=== PATIENT | female | born 1980 | race American Indian/Alaskan Native ===

== ENCOUNTER 2016-08-04 02:09 | Emergency (ER) | payer SELFPAY ==
[2016-08-04 02:37] VITALS: BP 134/93
[2016-08-04] MEDS ORDERED: ZOFRAN ODT ONE (02:47)
[2016-08-04] MEDS ORDERED: ZOFRAN ODT PO ONE (02:50)
[2016-08-04 03:03] LABS: Basophils % (Auto) 0.6 % (0.0-1.8); Eosinophils % (Auto) 1.1 % (0.0-4.3); Hemoglobin 13.9 gm/dl (10.1-14.3); Mean Corpuscular HGB Conc 34 % (30-34); Mean Corpuscular Hemoglobin 32 pg (28-32); Mean Corpuscular Volume 94 fl (79-97); Platelet Count 233 K/mm3 (140-440); Red Blood Count 4.37 M/mm3 (3.65-5.03); Red Cell Distribution Width 13.5 % (13.2-15.2); White Blood Count 11.8 K/mm3 (4.5-11.0)
--- NOTE | 2016-08-04 05:21 | Ultrasound Report ---
FINAL REPORT EXAM: US OB TRANSVAGINAL HISTORY: severe LLQ pain during . LMP 05/30/2016 with estimated age 9 weeks 3 days and EDC 03/06/2017 TECHNIQUE: Ultrasound of the pelvis using transvaginal imaging PRIORS: None. FINDINGS: Uterus: Uterus is enlarged in size and normal and homogeneous in echogenicity without focal fibroid formation. The uterus measures 13.0 x 6.3 x 8.4 cm in size. There is a single early viable intrauterine gestation noted. Intrauterine gestation: There is a single intrauterine gestation identified with both a pole and yolk sac. heart rate is monitored at 169 BPM. [place]-rump length measurement of 3.44 cm corresponds to estimated age 10 weeks 2 days with EDC 02/28/2017. Ovaries: The right ovary is not visualized. The left ovary is enlarged but has normal echogenicity with normal blood flow. The left ovary measures 5.3 x 2.8 x 2.1 cm in size. Other: There is no evidence for solid adnexal mass is seen. There is no free fluid in the cul-de-sac. IMPRESSION: Single intrauterine viable with an approximate age of 10 weeks 2 days. Left ovarian enlargement is noted. The right ovary is not visualized.
--- NOTE | 2016-08-04 05:22 | Ultrasound Report ---
FINAL REPORT EXAM: US OB < = 14 WEEKS FETUS HISTORY: severe LLQ pain during . LMP 05/30/2016 with estimated age 9 weeks 3 days and EDC 03/06/2017 TECHNIQUE: Ultrasound of the pelvis using transabdominal imaging PRIORS: Ultrasound transvaginal imaging from the same day. FINDINGS: Uterus: Uterus is enlarged in size and normal and homogeneous in echogenicity without focal fibroid formation. The uterus measures 13.0 x 6.3 x 8.4 cm in size. There is a single early viable intrauterine gestation noted. Intrauterine gestation: There is a single intrauterine gestation identified with both a pole and yolk sac. heart rate is monitored at 171 BPM. [place]-rump length measurement of 3.44 cm corresponds to estimated age 10 weeks 2 days with EDC 02/28/2017. Ovaries: The right ovary is not visualized. The left ovary is enlarged but has normal echogenicity with normal blood flow. The left ovary measures 5.3 x 2.8 x 2.1 cm in size. Other: There is no evidence for solid adnexal mass is seen. There is no free fluid in the cul-de-sac. IMPRESSION: Single intrauterine viable with an approximate age of 10 weeks 2 days. Left ovarian enlargement is noted. The right ovary is not visualized.
--- NOTE | 2016-08-05 18:40 | ED Elopement Review ---
ED Pt Elopement review - Results review Lab results: Laboratory Tests 08/04/16 08/04/16 08/04/16 02:47 02:47 02:47 WBC 11.8 H RBC 4.37 Hgb 13.9 Hct 41.0 MCV 94 MCH 32 MCHC 34 RDW 13.5 Plt Count 233 Lymph % (Auto) 23.4 [place] % (Auto) 6.9 Eos % (Auto) 1.1 Baso % (Auto) 0.6 Lymph # 2.8 [place] # 0.8 Eos # 0.1 Baso # 0.1 Seg Neutrophils % 68.0 Seg Neutrophils # 8.0 H HCG, Quant 26653 H Blood Type A POSITIVE Antibody Screen Negative - Call Back decision Pt Call Back Decision: No action required
== END 2016-08-04 02:50 | disposition left against medical advice (07) ==
LOC: ED 02:09
DX: O26.851 Spotting complicating pregnancy, first trimester (principal); Z3A.09 9 weeks gestation of pregnancy; Z53.21 Procedure and treatment not carried out due to patient leaving prior to being seen by health care provider
CPT/HCPCS: 36415; 76801; 76817; 84702; 85025; 86850; 86900; 86901; Q0162

== ENCOUNTER 2016-10-17 18:46 | Outpatient (CLI) | payer MEDICAID ==
[2016-10-17 19:30] VITALS: BP 121/68
[2016-10-17] MEDS ORDERED: LACTATED RINGERS 1,000 ML IV ONE (19:33)
[2016-10-17 20:03] LABS: Bacteria,Urine 2+ /HPF (Negative); Bilirubin,Urine NEG (Negative); Blood,Urine MOD (Negative); Ketones,Urine NEG (Negative); Leukocyte Esterase,Urine NEG (Negative); Mucus,Urine FEW /HPF; Nitrite,Urine NEG (Negative); Protein,Urine <15 mg/dL mg/dL (Negative)
[2016-10-17] MEDS ORDERED: ZOFRAN IM ONE (20:37)
[2016-10-17] MEDS ORDERED: LACTATED RINGERS 1,000 ML ONE (20:37)
[2016-10-17] MEDS ORDERED: ZOFRAN IV ONE (21:19)
== END 2016-10-17 21:05 | disposition home or self-care (01) ==
LOC: TRG 18:46
PROVIDERS: ATTEND Obstetrics & Gynecology
DX: O09.523 Supervision of elderly multigravida, third trimester (principal); O47.02 False labor before 37 completed weeks of gestation, second trimester; Z3A.20 20 weeks gestation of pregnancy
CPT/HCPCS: 81001; 96360; 96361; 96376; J7120; J2405

== ENCOUNTER 2017-02-16 00:36 | Inpatient (IN) | payer MEDICAID ==
[2017-02-16] MEDS ORDERED: POLYCILLIN/NS 2 GM/100 ML 2 GM/100 ML BAG IV ONE ×2 (03:57→04:40)
[2017-02-16] MEDS ORDERED: LACTATED RINGERS 1,000 ML ONE (03:57)
[2017-02-16] MEDS ORDERED: ZOFRAN IV PRN (04:40)
[2017-02-16] MEDS ORDERED: XYLOCAINE 2% INFILTRATI ONE (04:40)
[2017-02-16] MEDS ORDERED: BRETHINE SUB-Q PRN (04:40)
[2017-02-16] MEDS ORDERED: SUBLIMAZE IV PRN (04:40)
[2017-02-16] MEDS ORDERED: BRETHINE IVP PRN (04:40)
[2017-02-16] MEDS ORDERED: PHENERGAN PO PRN (04:40)
[2017-02-16] MEDS ORDERED: STADOL IV PRN (04:40)
[2017-02-16] MEDS ORDERED: ePHEDrine SULFATE IV PRN ×2 (04:40→10:00)
[2017-02-16] MEDS ORDERED: MINERAL OIL PO PRN (04:40)
--- NOTE | 2017-02-16 04:46 | History and Physical Report ---
History of Present Illness Date of examination: 02/16/17 Date of admission: 02/16/17 03:20 Chief complaint: Labor History of present illness: Pt is a 36yo BF EDC 03/06/17; EGA 37 3/7 weeks presents to L&D complaining of SROM clear fluid followed by irregular contractions. She received care with Dr Maher and [facility] but records are not available. Past History Past Medical History: no pertinent history Past Surgical History: no surgical history Social history: no significant social history, single - Obstetrical History Expected Date of Delivery: 03/06/17 Actual Gestation: 37 Week(s) 3 Day(s) : 4 Medications and Allergies Allergies Allergy/AdvReac Type Severity Reaction Status Date / Time No Known Allergies Allergy Verified 09/16/15 04:58 Home Medications Medication Instructions Recorded Confirmed Last Taken Type Nitrofurantoin [place]/M-Cryst 100 mg PO Q12HR 11/17/15 02/16/17 11/15/15 21:00 History [Macrobid CAP] 1 Valacyclovir HCl [valACYclovir] 1 tab PO DAILY 11/17/15 02/16/17 11/15/15 21:00 History 1 Active Meds: Active Medications Butorphanol Tartrate (Stadol) 2 mg IV Q2H PRN PRN Reason: Pain , Severe (7-10) Ephedrine Sulfate (Ephedrine Sulfate) 10 mg IV Q2M PRN PRN Reason: Hypotension Stop: 02/16/17 04:45 Fentanyl (Sublimaze) 100 mcg IV Q2H PRN PRN Reason: Labor Pain Ampicillin Sodium (Polycillin/Ns 1 Gm/50 Ml) 1 gm in 50 mls @ 100 mls/hr IV Q4HR MARCELINA PRN Reason: Protocol Ampicillin Sodium (Polycillin/Ns 2 Gm/100 Ml) 2 gm in 100 mls @ 100 mls/hr IV ONCE ONE PRN Reason: Protocol Stop: 02/16/17 05:39 Lactated Ringer's (Lactated Ringers) 1,000 mls @ 125 mls/hr IV DIRECT MARCELINA Oxytocin/Sodium Chloride (Pitocin/Ns 20 Unit/1000ml Drip) 20 units in 1,000 mls @ 125 mls/hr IV DIRECT MARCELINA Oxytocin/Sodium Chloride (Pitocin/Ns 30 Unit/500ml) 30 units in 500 mls @ 1 mls /hr IV TITR MARCELINA; 1 MILLIUNITS/MIN PRN Reason: Protocol Oxytocin/Sodium Chloride (Pitocin/Ns 30 Unit/500ml) 30 units in 500 mls @ 4 mls /hr IV TITR MARCELINA PRN Reason: Protocol Lidocaine (Xylocaine 2%) 20 ml INFILTRATI ONCE ONE Stop: 02/16/17 04:41 Mineral Oil (Mineral Oil) 30 ml PO QHS PRN PRN Reason: Constipation Ondansetron HCl (Zofran) 4 mg IV Q8H PRN PRN Reason: Nausea And Vomiting Review of Systems All systems: negative - Vital Signs Vital signs: Vital Signs Pulse Pulse Ox 268 H 82 L 02/16/17 00:49 02/16/17 00:49 Temp Pulse Resp BP Pulse Ox 98.0 F 51 L 18 127/79 77 L 02/16/17 00:53 02/16/17 03:11 02/16/17 00:53 02/16/17 00:53 02/16/17 03:11 - Physical Exam Breasts: Positive: deferred Cardiovascular: Regular rate Lungs: Positive: Clear to auscultation Abdomen: Positive: normal appearance Genitourinary (Female): Positive: normal external genitalia Vagina: Positive: normal moisture Uterus: Positive: enlarged Extremities: Positive: normal - Obstetrical FHR: category 1 Uterine Contraction Monitor Mode: External Cervical Dilatation: 4 Cervical Effacement Percentage: 70 station: -2 Uterine Contraction Pattern: Regular Uterine Tone Measurement Phase: Contraction Uterine Contraction Intensity: Mild Results Result Diagrams: 02/16/17 03:30 All other labs normal. Assessment and Plan - Patient Problems (1) 37 weeks gestation of Onset Date: 02/16/17 Current Visit: Yes Status: Acute Plan to address problem: A: IUP @ 37 3/7 weeks in labor Unknown GBS P: Admit to L&D for expectant vaginal delivery IV Ampicillin Obtain records
[2017-02-16] MEDS ORDERED: PITOCin/NS 30 UNIT/500ML 30 UNITS/500 ML BAG IV SCH ×2 (05:00)
[2017-02-16] MEDS ORDERED: PITOCin/NS 20 UNIT/1000ML DRIP 20 UNITS/1,000 ML BAG IV SCH (05:00)
[2017-02-16 05:39] LABS: Hemoglobin 12.4 gm/dl (10.1-14.3); Mean Corpuscular HGB Conc 34 % (30-34); Mean Corpuscular Hemoglobin 30 pg (28-32); Mean Corpuscular Volume 91 fl (79-97); Platelet Count 198 K/mm3 (140-440); Red Blood Count 4.07 M/mm3 (3.65-5.03); Red Cell Distribution Width 14.5 % (13.2-15.2); White Blood Count 7.2 K/mm3 (4.5-11.0)
[2017-02-16] MEDS ORDERED: ePHEDrine SULFATE ONE (08:20)
[2017-02-16] MEDS ORDERED: POLYCILLIN/NS 1 GM/50 ML 1 GM/50 ML BAG IV SCH (08:43)
[2017-02-16] MEDS ORDERED: fentaNYL-BUPIV 2 MCG/ML-0.125% 200 MCG/100 ML BAG EPIDURAL ONE (08:53)
--- NOTE | 2017-02-16 09:24 | Anesthesia Consultation ---
Anesthesia Consult and Med Hx Date of service: 02/16/17 - Airway Anesthetic Teeth Evaluation: Good ROM Head & Neck: Adequate Mental/Hyoid Distance: Adequate Mallampati Class: Class II Intubation Access Assessment: Probably Good - Pre-Operative Health Status ASA Pre-Surgery Classification: ASA2 Proposed Anesthetic Plan: Epidural, Spinal - Pulmonary Hx Asthma: No COPD: No Hx Pneumonia: No - Cardiovascular System Hx Hypertension: No - Central Nervous System Hx Seizures: No Hx Psychiatric Problems: No - Endocrine Hx Renal Disease: No Hx End Stage Renal Disease: No Hx Hypothyroidism: No Hx Hyperthyroidism: No - Hematic Hx Anemia: Yes Hx Sickle Cell Disease: No - Other Systems Hx Alcohol Use: No
--- NOTE | 2017-02-16 09:35 | Procedure Note ---
OB Delivery Note - Delivery Date of Delivery: 02/16/17 Surgeon: LAURA MONTOYA Estimated blood loss: 200cc - Vaginal Delivery presentation: vertex Delivery position: OA Delivery induction: none Delivery monitor: none Route of delivery: Delivery placenta: spontaneous Episiotomy: none Delivery laceration: none Anesthesia: intravenous, epidural Delivery comments: of a viable male 5#-15 oz on 02/16/2017 @ 0904 over intact perineum. Placenta delivered 3VCI. FF @ U-2, lochia small. Mother and baby doing well. States she had care at [facility]. - Infant A at 1 minute: 8 at 5 minutes: 9 Gender: Male (5#-15)
[2017-02-16] MEDS: LACTATED RINGERS 1,000 ML IV SCH ×2 (09:37→11:06)
[2017-02-16] MEDS: FIORICET PO PRN ×2 (09:57→14:15)
[2017-02-16] MEDS ORDERED: NARCAN 2 MG/2 ML IV PRN (10:00)
[2017-02-16] MEDS ORDERED: fentaNYL-BUPIV 2 MCG/ML-0.125% 200 MCG/100 ML BAG EPIDURAL SCH (10:00)
[2017-02-16] MEDS ORDERED: TORADOL IV PRN (10:00)
[2017-02-16] MEDS ORDERED: PERCOCET 5/325 PO PRN ×2 (12:36→12:37)
--- NOTE | 2017-02-16 15:24 | Progress Note ---
Subjective Date of service: 02/16/17 Principal diagnosis: POST DURAL PUNCTURE HEADACHE Interval history: EPIDURAL BLOOD PATCH NOTE: Called by nurse because patient complaining of neck pain and headache. Nurse reports that patient had a wet tap during combined spinal-epidural this morning for vaginal delivery. Pain is worse when sitting up and made slightly better when laying down. Patient describes pain as sharp and throbbing and she rates it 10/10. She reports that she can not sit up and hold her baby. Fioricet was ordered and patient was given two of them however she did not have any relief of pain. She was then consented for an epidural blood patch for post dural puncture headache. Patient was brought to [facility]. She was placed in sitting position. Back was steriley prepped and draped. Skin was numbed with 1% lidocaine local. 18 gauge tuoy needle was then placed at L2/3 level. Loss of resistance with saline at 5cm. 20cc of blood was obtained by ABRAHAM Yoder from patient left hand steriley. 20cc of blood was then injected back into epidural space. Patient was then laid flat for 30 minutes. She reported that her head and neck pain were getting better. She was then sent back to mother-baby in a stable condition. Lot #[id number] Exp 09/2017 Time Spent: 20 minutes Location: [facility] Procedure room 1 Requesting Physician: Dr. Tyree Ramesh Performing Physican: Dr. Anabela Bernal Objective - Constitutional Vitals: Vital Signs - 12hr 02/16/17 02/16/17 02/16/17 05:44 06:51 06:56 Temperature 98.3 F Pulse Rate 88 95 H 102 H Respiratory 20 Rate Blood Pressure 139/88 O2 Sat by Pulse 100 100 Oximetry 02/16/17 02/16/17 02/16/17 07:00 07:06 07:11 Temperature Pulse Rate 92 H 96 H 96 H Respiratory Rate Blood Pressure O2 Sat by Pulse 98 99 99 Oximetry 02/16/17 02/16/17 02/16/17 07:16 07:21 07:22 Temperature Pulse Rate 100 H 94 H 96 H Respiratory Rate Blood Pressure 172/96 O2 Sat by Pulse 99 97 Oximetry 02/16/17 02/16/17 02/16/17 07:24 07:26 07:31 Temperature Pulse Rate 96 H 95 H 104 H Respiratory Rate Blood Pressure 145/80 O2 Sat by Pulse 98 96 Oximetry 02/16/17 02/16/17 02/16/17 07:33 07:36 08:28 Temperature Pulse Rate 118 H 95 H 101 H Respiratory Rate Blood Pressure 123/67 O2 Sat by Pulse 85 98 99 Oximetry 02/16/17 02/16/17 02/16/17 08:30 08:33 08:37 Temperature 98.4 F Pulse Rate 102 H 101 H 99 H Respiratory 18 Rate Blood Pressure 123/67 123/69 O2 Sat by Pulse 99 99 Oximetry 02/16/17 02/16/17 02/16/17 08:38 08:39 08:41 Temperature Pulse Rate 94 H 98 H 86 Respiratory Rate Blood Pressure 122/71 123/72 O2 Sat by Pulse 99 Oximetry 02/16/17 02/16/17 02/16/17 08:43 08:45 08:47 Temperature Pulse Rate 93 H 84 88 Respiratory Rate Blood Pressure 123/73 125/75 125/71 O2 Sat by Pulse 98 Oximetry 02/16/17 02/16/17 02/16/17 08:48 08:49 08:51 Temperature Pulse Rate 86 85 129 H Respiratory Rate Blood Pressure 118/69 161/77 O2 Sat by Pulse 98 Oximetry 02/16/17 02/16/17 02/16/17 08:53 08:55 08:57 Temperature Pulse Rate 91 H 91 H 102 H Respiratory Rate Blood Pressure 135/63 125/91 120/74 O2 Sat by Pulse 98 Oximetry 02/16/17 02/16/17 02/16/17 08:58 08:59 09:01 Temperature Pulse Rate 97 H 94 H 99 H Respiratory Rate Blood Pressure 113/59 125/62 O2 Sat by Pulse 99 Oximetry 02/16/17 02/16/17 02/16/17 09:03 09:42 09:47 Temperature Pulse Rate 86 100 H 92 H Respiratory Rate Blood Pressure 151/95 O2 Sat by Pulse 97 100 Oximetry 02/16/17 02/16/17 02/16/17 09:52 09:57 10:02 Temperature Pulse Rate 86 85 84 Respiratory 20 Rate Blood Pressure 136/75 O2 Sat by Pulse 99 99 98 Oximetry 02/16/17 02/16/17 02/16/17 10:05 10:07 10:12 Temperature Pulse Rate 92 H 104 H 88 Respiratory 20 Rate Blood Pressure 151/95 130/74 O2 Sat by Pulse 100 100 Oximetry 02/16/17 02/16/17 02/16/17 10:17 10:22 10:24 Temperature 97.6 F Pulse Rate 95 H 91 H 95 H Respiratory 20 Rate Blood Pressure 130/74 O2 Sat by Pulse 100 100 Oximetry 02/16/17 02/16/17 02/16/17 10:27 10:32 10:37 Temperature Pulse Rate 98 H 84 80 Respiratory Rate Blood Pressure 132/79 O2 Sat by Pulse 100 100 98 Oximetry 02/16/17 02/16/17 02/16/17 10:39 10:42 10:47 Temperature Pulse Rate 80 79 82 Respiratory 20 Rate Blood Pressure 132/79 138/80 O2 Sat by Pulse 98 98 98 Oximetry 02/16/17 02/16/17 02/16/17 10:52 10:57 11:45 Temperature 98.6 F Pulse Rate 87 98 H 81 Respiratory 20 Rate Blood Pressure 140/87 123/69 O2 Sat by Pulse 99 99 Oximetry - Labs CBC & Chem 7: 02/16/17 03:30
--- NOTE | 2017-02-16 15:28 | Post Operative Note ---
Date of procedure: 02/16/17 Pre-op diagnosis: POST DURAL PUNCTURE HEADACHE Post-op diagnosis: same Procedure: EPIDURAL BLOOD PATCH Anesthesia: local Surgeon: MEME [place] Estimated blood loss: minimal Pathology: none Condition: stable Disposition: floor
[2017-02-16] MEDS: MOTRIN PO SCH (19:02)
[2017-02-16] MEDS: BENADRYL PO PRN (21:24)
[2017-02-16 22:15] LABS: Hematocrit 33.4 % (30.3-42.9); Hemoglobin 11.4 gm/dl (10.1-14.3)
[2017-02-17] MEDS: MOTRIN PO SCH (00:44)
[2017-02-17] MEDS ORDERED: MOTRIN PO PRN (01:32)
[2017-02-17 08:49] VITALS: BP 110/70
--- NOTE | 2017-02-17 10:01 | Progress Note ---
Assessment and Plan A: PPD #1 -stable P: Discharge home today Subjective - Subjective Date of service: 02/17/17 Principal diagnosis: Patient reports: appetite normal : doing well Objective - Vital Signs Latest vital signs: Vital Signs Temp Pulse Resp BP Pulse Ox 02/17/17 08:48 98.7 F 87 20 110/70 02/17/17 00:00 98.4 F 81 20 118/69 02/16/17 16:00 98.1 F 83 20 128/71 02/16/17 11:45 98.6 F 81 20 123/69 02/16/17 10:57 98 H 140/87 99 02/16/17 10:52 87 99 02/16/17 10:47 82 98 02/16/17 10:42 79 138/80 98 02/16/17 10:39 80 20 132/79 98 02/16/17 10:37 80 98 02/16/17 10:32 84 100 02/16/17 10:27 98 H 132/79 100 02/16/17 10:24 97.6 F 95 H 20 130/74 02/16/17 10:22 91 H 100 02/16/17 10:17 95 H 100 02/16/17 10:12 88 130/74 02/16/17 10:07 104 H 100 02/16/17 10:05 92 H 20 151/95 100 02/16/17 10:02 84 98 Intake and Output 02/16/17 02/17/17 02/17/17 22:59 06:59 14:59 Intake Total 610 240 120 Balance 610 240 120 Intake: IV 250 PITOCin/NS 20 UNIT/1000ML 250 DRIP 20 units In 1,000 ml @ 125 mls/hr IV DIRECT MARCELINA Rx#:[id number] Oral 360 240 120 Other: Total, Intake Amount 240 240 120 # Voids Void 1 1 700 - Exam Breasts: Present: Cardiovascular: Present: Regular rate Lungs: Present: Clear to auscultation Abdomen: Present: soft Vulva: both: normal Uterus: Present: fundal height below umbilicus Deep Tendon Reflex Grade: Normal +2
--- NOTE | 2017-02-17 10:03 | Discharge Summary ---
Providers - Providers Date of Admission: 02/16/17 03:20 Date of discharge: 02/17/17 Attending physician: GAUTAM STORM MD Primary care physician: GAUTAM STORM MD Hospitalization Reason for admission: active labor Delivery: Episiotomy: none Laceration: none Other procedures: none Discharge diagnosis: IUP at term delivered [place] baby: male Hospital course: Had spinal headache, resolved with Blood patch Condition at discharge: Good Disposition: DC-01 TO HOME OR SELFCARE Plan - Provider Discharge Summary Activity: routine, no sex for 6 weeks, no strenuous exercise Diet: routine Instructions: routine Additional instructions: [] Smoking cessation referral if applicable(refer to patient education folder for contact #) [] Refer to [facility]'s [facility] Booklet Call your doctor immediately for: * Fever > 100.5 * Heavy vaginal bleeding ( >1 pad per hour) * Severe persistent headache * Shortness of breath * Reddened, hot, painful area to leg or breast * Drainage or odor from incision. * Keep incision clean and dry at all times and follow doctor's instructions regarding bathing/showering - Follow up plan Follow up: [facility] [Provider Group] - 6 Weeks
[2017-02-17] MEDS: BENADRYL PO PRN (11:50)
--- NOTE | 2017-02-17 14:13 | Progress Note ---
Subjective Date of service: 02/17/17 Principal diagnosis: Interval history: 1st day after normal vaginal delivery Patient is in the bed, comfortable. Pain is well controlled with pain meds. Ambulated well. Headache has resolved. No residual neurological deficit. No anesthesia complications. Discharged by the provider in the good condition Objective - Constitutional Vitals: Vital Signs - 12hr 02/17/17 08:48 Temperature 98.7 F Pulse Rate 87 Respiratory 20 Rate Blood Pressure 110/70 - Labs CBC & Chem 7: 02/16/17 22:02
== END 2017-02-17 14:00 | disposition home or self-care (01) | DRG 775 ==
LOC: TRG 00:36 → LD 03:20 → OB 11:46
PROVIDERS: ADMIT Obstetrics & Gynecology; ATTEND Obstetrics & Gynecology
PROC: 00HU33Z Insertion of Infusion Device into Spinal Canal, Percutaneous Approach (ICD-10-PCS; principal; 2017-02-16)
PROC: 10E0XZZ Delivery of Products of Conception, External Approach (ICD-10-PCS; principal; 2017-02-16)
PROC: 3E0R3GC Introduction of Other Therapeutic Substance into Spinal Canal, Percutaneous Approach (ICD-10-PCS; 2017-02-16)
PROC: 3E0R3CZ (ICD-10-PCS; 2017-02-16)
DX: O09.523 Supervision of elderly multigravida, third trimester (principal); Z3A.37 37 weeks gestation of pregnancy; Z37.0 Single live birth; O89.4 Spinal and epidural anesthesia-induced headache during the puerperium
CPT/HCPCS: 36415; 62273; 85014; 85018; 85027; 86850; 86900; 86901; 99211; G0463; J0290; J2405; J2590; J3010; J7120

== ENCOUNTER 2017-02-18 00:24 | Emergency (ER) | payer MEDICAID ==
[2017-02-18] MEDS ORDERED: ZOFRAN ONE (00:55)
[2017-02-18] MEDS ORDERED: MORPHINE ONE (00:55)
[2017-02-18] MEDS ORDERED: MORPHINE IM ONE (00:59)
[2017-02-18] MEDS ORDERED: ZOFRAN IM ONE (00:59)
[2017-02-18] MEDS ORDERED: MOTRIN ONE (01:06)
[2017-02-18] MEDS ORDERED: MOTRIN PO ONE (01:08)
[2017-02-18 01:43] LABS: Basophils % (Auto) 0.4 % (0.0-1.8); Eosinophils % (Auto) 1.7 % (0.0-4.3); Hematocrit 34.6 % (30.3-42.9); Hemoglobin 11.7 gm/dl (10.1-14.3); Mean Corpuscular HGB Conc 34 % (30-34); Mean Corpuscular Hemoglobin 31 pg (28-32); Mean Corpuscular Volume 91 fl (79-97); Platelet Count 183 K/mm3 (140-440); Red Blood Count 3.79 M/mm3 (3.65-5.03); Red Cell Distribution Width 14.4 % (13.2-15.2); White Blood Count 6.6 K/mm3 (4.5-11.0)
[2017-02-18 01:51] LABS: INR 0.86 (0.87-1.13)
[2017-02-18 01:52] LABS: Anion Gap 18 mmol/L; Blood Urea Nitrogen 7 mg/dL (7-17); Carbon Dioxide 23 mmol/L (22-30); Chloride 103.2 mmol/L (98-107); Glucose 85 mg/dL (65-100); Partial Thromboplastin Time 26.4 Sec. (24.2-36.6); Potassium 4.1 mmol/L (3.6-5.0); Sodium 140 mmol/L (137-145)
[2017-02-18] MEDS ORDERED: TORADOL IV ONE (06:47)
[2017-02-18] MEDS ORDERED: NACL 0.9% 1000 ML 1,000 ML IV ONE (06:47)
--- NOTE | 2017-02-18 06:51 | Emergency Department Report ---
ED Back Pain/Injury HPI - General Chief Complaint: Back Pain/Injury Stated Complaint: EPIDURAL SIDE EFFECTS Time Seen by Provider: 02/18/17 06:41 Source: patient Limitations: No Limitations - History of Present Illness Initial Comments: Patient has an epidural 2 days ago for normal vaginal delivery. She stated that she started to have back pain and headache she has a blood patch already done patient stated that her pain is still going on denied any fever nausea vomiting no weakness numbness or tingling sensation no neck pain MD Complaint: back pain -: days(s) Similar Symptoms Previously: Yes Consistency: constant Associated Symptoms: denies: confusion, weakness, numbness, difficulty walking, cough, fever/chills, headaches, seizure, shortness of breath - Related Data Home Medications Medication Instructions Recorded Confirmed Last Taken Nitrofurantoin [place]/M-Cryst 100 mg PO Q12HR 11/17/15 02/16/17 11/15/15 21:00 [Macrobid CAP] 1 Valacyclovir HCl [valACYclovir] 1 tab PO DAILY 11/17/15 02/16/17 11/15/15 21:00 1 Previous Rx's Medication Instructions Recorded Last Taken Type Acetaminophen/Codeine [Tylenol 1 tab PO Q6H PRN #14 tab 02/18/17 Unknown Rx /Codeine # 3 tab] Ketorolac [Toradol] 10 mg PO Q6H PRN #20 tablet 02/18/17 Unknown Rx Ondansetron [Zofran Odt] 4 mg PO Q8HR PRN #14 tab.rapdis 02/18/17 Unknown Rx Allergies Allergy/AdvReac Type Severity Reaction Status Date / Time morphine AdvReac Unknown Verified 02/18/17 01:11 ED Review of Systems ROS: Stated complaint: EPIDURAL SIDE EFFECTS Other details as noted in HPI Comment: All other systems reviewed and negative Constitutional: denies: chills, fever Respiratory: denies: cough, shortness of breath Cardiovascular: denies: chest pain, palpitations Gastrointestinal: denies: abdominal pain, nausea, vomiting, diarrhea Genitourinary: denies: dysuria, frequency Musculoskeletal: back pain. denies: joint swelling, arthralgia, myalgia Neurological: denies: headache Psychiatric: denies: depression, suicidal thoughts ED Past Medical Hx - Past Medical History Previous Medical History?: No Hx Hypertension: No Hx Congestive Heart Failure: No Hx Diabetes: No Hx Deep Vein Thrombosis: No Hx Renal Disease: No Hx Sickle Cell Disease: No Hx Seizures: No Hx Asthma: No Hx COPD: No Hx HIV: No - Surgical History Past Surgical History?: No - Social History Smoking Status: Never Smoker Substance Use Type: None - Medications Home Medications: Home Medications Medication Instructions Recorded Confirmed Last Taken Type Nitrofurantoin [place]/M-Cryst 100 mg PO Q12HR 11/17/15 02/16/17 11/15/15 21:00 History [Macrobid CAP] 1 Valacyclovir HCl [valACYclovir] 1 tab PO DAILY 11/17/15 02/16/17 11/15/15 21:00 History 1 Acetaminophen/Codeine [Tylenol 1 tab PO Q6H PRN #14 tab 02/18/17 Unknown Rx /Codeine # 3 tab] Ketorolac [Toradol] 10 mg PO Q6H PRN #20 tablet 02/18/17 Unknown Rx Ondansetron [Zofran Odt] 4 mg PO Q8HR PRN #14 tab.rapdis 02/18/17 Unknown Rx ED Physical Exam - General Limitations: No Limitations General appearance: alert, in no apparent distress - Head Head exam: Present: atraumatic, normal inspection - Eye Eye exam: Present: normal appearance Pupils: Present: normal accommodation - ENT ENT exam: Present: normal exam, normal orophraynx - Neck Neck exam: Present: normal inspection, full ROM. Absent: tenderness, meningismus, lymphadenopathy, thyromegaly - Respiratory Respiratory exam: Present: normal lung sounds bilaterally. Absent: wheezes, rales, rhonchi, chest wall tenderness - Cardiovascular Cardiovascular Exam: Present: regular rate, normal heart sounds - GI/Abdominal GI/Abdominal exam: Present: soft, normal bowel sounds. Absent: distended, tenderness, guarding, rebound, rigid - Extremities Exam Extremities exam: Present: normal inspection - Back Exam Back exam: Present: normal inspection, full ROM. Absent: tenderness, CVA tenderness (R), CVA tenderness (L), muscle spasm, paraspinal tenderness, vertebral tenderness - Neurological Exam Neurological exam: Present: alert, oriented X3, CN II-XII intact, normal gait. Absent: motor sensory deficit, reflexes normal - Psychiatric Psychiatric exam: Present: normal affect - Skin Skin exam: Present: warm, intact, normal color ED Course Vital Signs 02/18/17 02/18/17 02/18/17 00:43 06:00 06:51 Temperature 98.8 F Pulse Rate 74 73 Respiratory 20 16 14 Rate Blood Pressure 140/100 121/72 [Right] O2 Sat by Pulse 98 100 99 Oximetry - Reevaluation(s) Reevaluation #1: 02/18/17 09:44 Patient stated that she is feeling better and she is ready to go home ED Medical Decision Making - Lab Data Result diagrams: 02/18/17 01:10 02/18/17 01:10 Critical care attestation.: If time is entered above; I have spent that time in minutes in the direct care of this critically ill patient, excluding procedure time. ED Disposition Clinical Impression: Back pain, History of epidural anesthesia Disposition: - TO HOME OR SELFCARE Is pt being admited?: No Condition: Stable Referrals: PRIMARY CARE, [Primary Care Provider] - 3-5 Days
[2017-02-18 10:10] VITALS: BP 132/90
== END 2017-02-18 10:09 | disposition home or self-care (01) ==
LOC: ED 00:24
DX: M54.9 Dorsalgia, unspecified (principal); Z88.5 Allergy status to narcotic agent
CPT/HCPCS: 36415; 80048; 85025; 85610; 85730; 96361; 96374; 99283; J1885; J2270; J2405; J7030

== ENCOUNTER 2017-02-21 15:56 | Emergency (ER) | payer MEDICAID ==
[2017-02-21] MEDS ORDERED: NACL 0.9% 1000 ML 1,000 ML IV ONE (16:06)
--- NOTE | 2017-02-21 16:07 | Emergency Department Report ---
Chief Complaint: Headache Stated Complaint: NECK PAIN Time Seen by Provider: 02/21/17 16:05 - HPI History of Present Illness: pt c/o headache. pt had epidural 02/16/17 for vaginal delivery - Exam Physical Exam: pt appears uncomfortable, covering eyes MSE screening note: Focused history and physical exam performed. Due to findings the following was ordered: ED Disposition for MSE Condition: Stable
[2017-02-21 16:51] LABS: Basophils % (Auto) 0.2 % (0.0-1.8); Eosinophils % (Auto) 0.4 % (0.0-4.3); Hematocrit 35.6 % (30.3-42.9); Hemoglobin 12.1 gm/dl (10.1-14.3); Mean Corpuscular HGB Conc 34 % (30-34); Mean Corpuscular Hemoglobin 31 pg (28-32); Mean Corpuscular Volume 90 fl (79-97); Platelet Count 252 K/mm3 (140-440); Red Blood Count 3.96 M/mm3 (3.65-5.03); Red Cell Distribution Width 14.1 % (13.2-15.2); White Blood Count 6.6 K/mm3 (4.5-11.0)
[2017-02-21 16:58] LABS: INR 0.94 (0.87-1.13)
[2017-02-21 16:59] LABS: Partial Thromboplastin Time 26.8 Sec. (24.2-36.6)
[2017-02-21 17:07] LABS: Anion Gap 21 mmol/L; BUN/Creatinine Ratio 23.33; Blood Urea Nitrogen 14 mg/dL (7-17); Calcium 8.5 mg/dL (8.4-10.2); Carbon Dioxide 21 mmol/L (22-30); Chloride 101.9 mmol/L (98-107); Glucose 80 mg/dL (65-100); Potassium 3.7 mmol/L (3.6-5.0); Sodium 140 mmol/L (137-145)
--- NOTE | 2017-02-21 18:24 | Emergency Department Report ---
ED Headache HPI - General Chief Complaint: Headache Stated Complaint: NECK PAIN Time Seen by Provider: 02/21/17 16:05 Source: patient - History of Present Illness Initial Comments: Patient is a 36-year-old female this is her second visit to the ER for headache she has a history of epidural 5 days ago and she was sent by how her OB doctor for blood patch. Patient describes her headache as throbbing associated his back pain denies any visual problem and no other complaint. Timing/Duration: 1 week Quality: moderate Head Injury Location: frontal Allergies/Adverse Reactions: Allergies morphine Adverse Reaction (Verified 02/18/17 01:11) Unknown Hallucinations Home Medications: Ambulatory Orders Valacyclovir HCl [valACYclovir] 1 tab PO DAILY 11/17/15 Acetaminophen/Codeine [Tylenol /Codeine # 3 tab] 1 tab PO Q6H PRN #14 tab Ketorolac [Toradol] 10 mg PO Q6H PRN #20 tablet 02/18/17 Ondansetron [Zofran Odt] 4 mg PO Q8HR PRN #14 tab.rapdis 02/18/17 Ondansetron [Zofran Odt] 4 mg PO Q8HR PRN #14 tab.rapdis 02/21/17 traMADol [Ultram 50 MG tab] 50 mg PO Q4HR PRN #14 tablet 02/21/17 ED Review of Systems ROS: Stated complaint: NECK PAIN Other details as noted in HPI Comment: All other systems reviewed and negative Constitutional: denies: chills, fever ENT: denies: throat pain Respiratory: denies: orthopnea, shortness of breath Cardiovascular: denies: chest pain Gastrointestinal: denies: abdominal pain, vomiting Neurological: headache. denies: weakness, numbness, paresthesias, confusion, abnormal gait, vertigo ED Past Medical Hx - Past Medical History Previous Medical History?: Yes Hx Hypertension: No Hx Congestive Heart Failure: No Hx Diabetes: No Hx Deep Vein Thrombosis: No Hx Renal Disease: No Hx Sickle Cell Disease: No Hx Seizures: No Hx Asthma: No Hx COPD: No Hx HIV: No Additional medical history: Vaginal dleivery with epidural 02-16-2017 - Surgical History Past Surgical History?: No - Social History Smoking Status: Former Smoker Substance Use Type: Non Opiate Pain, Prescribed - Medications Home Medications: Home Medications Medication Instructions Recorded Confirmed Last Taken Type Valacyclovir HCl [valACYclovir] 1 tab PO DAILY 11/17/15 02/21/17 11/15/15 21:00 History 1 Acetaminophen/Codeine [Tylenol 1 tab PO Q6H PRN #14 tab 02/18/17 02/21/17 Unknown Rx /Codeine # 3 tab] Ketorolac [Toradol] 10 mg PO Q6H PRN #20 tablet 02/18/17 02/21/17 Unknown Rx Ondansetron [Zofran Odt] 4 mg PO Q8HR PRN #14 tab.rapdis 02/18/17 02/21/17 Unknown Rx Ondansetron [Zofran Odt] 4 mg PO Q8HR PRN #14 tab.rapdis 02/21/17 Unknown Rx traMADol [Ultram 50 MG tab] 50 mg PO Q4HR PRN #14 tablet 02/21/17 Unknown Rx ED Physical Exam - General Limitations: No Limitations General appearance: alert, in no apparent distress - Head Head exam: Present: atraumatic, normocephalic, normal inspection - Eye Pupils: Present: normal accommodation - ENT ENT exam: Present: normal exam - Neck Neck exam: Present: normal inspection, full ROM. Absent: tenderness, meningismus, lymphadenopathy, thyromegaly - Respiratory Respiratory exam: Present: normal lung sounds bilaterally. Absent: respiratory distress, wheezes, rhonchi, chest wall tenderness, accessory muscle use, decreased breath sounds - Cardiovascular Cardiovascular Exam: Present: regular rate, normal rhythm, normal heart sounds - GI/Abdominal GI/Abdominal exam: Present: soft. Absent: distended, tenderness, guarding, rebound - Back Exam Back exam: Present: normal inspection. Absent: CVA tenderness (R), CVA tenderness (L) - Neurological Exam Neurological exam: Present: alert, oriented X3, CN II-XII intact, normal gait - Skin Skin exam: Present: warm. Absent: dry, intact ED Course Vital Signs 02/21/17 02/21/17 02/21/17 16:02 16:20 18:40 Temperature 98.3 F 98.2 F 99.3 F Pulse Rate 60 61 62 Respiratory 18 16 18 Rate Blood Pressure 136/87 Blood Pressure 131/75 123/67 [Left] O2 Sat by Pulse 99 100 100 Oximetry - Reevaluation(s) Reevaluation #1: 02/21/17 18:[address] Ivory from anesthesia for blood patch and he stated he will see the patient. Reevaluation #2: 02/21/17 19:17 Blood patch was done at bedside in the ER by Dr. Ivory. Patient stated that she is feeling better we'll discharge him home with some pain medication. ED Medical Decision Making - Lab Data Result diagrams: 02/21/17 16:25 02/21/17 16:25 Critical care attestation.: If time is entered above; I have spent that time in minutes in the direct care of this critically ill patient, excluding procedure time. ED Disposition Clinical Impression: Headache, History of epidural anesthesia Disposition: DC- TO HOME OR SELFCARE Is pt being admited?: No Condition: Stable Instructions: Acute Headache (ED) Prescriptions: Ondansetron [Zofran Odt] 4 mg PO Q8HR PRN #14 tab.rapdis PRN Reason: Nausea And Vomiting traMADol [Ultram 50 MG tab] 50 mg PO Q4HR PRN #14 tablet PRN Reason: Pain Referrals: PRIMARY CARE,MD [Primary Care Provider] - 3-5 Days
--- NOTE | 2017-02-21 19:27 | Event Note ---
Date: 02/21/17 Patient is 36 year old female who had vaginal delivery on 02/16/[address] Wang. Patient states that she began experiencing headache within hours of labor epidural placement. Labor epidural was complicated by wet tap with touhy needle. She underwent epidural blood patch post delivery on 02/16 and states that her headache went away immediately, however post discharge her headache reoccured. She present to ED today with symptoms consistant with post dural puncture headache and wishes to undergo repeat blood patch. After informed consent obtained for blood patch, patient was placed in sitting position on stretcher. Low back prepped and draped in sterile fashion with betadine scrub and standard epiural drape. 3 previous needle insertion sites were noted from initial epidural placement as well as 1st epidural blood patch. I went with approach that was in the middle of these insertion sites. By my palpation i would say this was at level of L3-L4. Skin and subcutaneous tissue at this level was anesthetized with 2cc of lidocaine 1%. 18 gauge touhy needle was inserted and epidural space was accessed using loss of resistance technique. 20cc of blood was withdrawn from left antecubital vein and blood was slowly injected through epidural until patient experienced back pressure. This occured at after 15cc of blood injected. At this point patient stated that her headache had subsided at which i deemed procedure was complete and successful. Post procedure patient was placed in supine position slightly head up. She stated that headche is now resolved.
[2017-02-21 19:54] VITALS: BP 135/72
== END 2017-02-21 19:55 | disposition home or self-care (01) ==
LOC: ED 15:56
DX: R51 Headache (principal); Z87.891 Personal history of nicotine dependence; Z88.5 Allergy status to narcotic agent
CPT/HCPCS: 36415; 80048; 85025; 85610; 85730; 96360; 99283; J7030

== ENCOUNTER 2019-04-24 10:49 | Outpatient (CLI) | payer MEDICAID ==
--- NOTE | 2019-04-24 11:53 | XRay Report ---
XR spine lumbosacral 4+V INDICATION / CLINICAL INFORMATION: LOWER BACK PAIN. COMPARISON: None available. FINDINGS: BONES/JOINT(S): No vertebral fracture. Trace spondylosis at L3-4 and L4-5 with tiny anterior osteophy alexandra without significant disc height loss. Overall normal alignment. No aggressive appearing bone lesi ons. SOFT TISSUES: No significant abnormality. ADDITIONAL FINDINGS: None. Signer Name: Matias Ocampo MD Signed: 04/24/2019 11:49 AM Workstation Name: [id number]
--- NOTE | 2019-04-24 11:53 | XRay Report ---
CHEST 2 VIEWS INDICATION / CLINICAL INFORMATION: COUGH. COMPARISON: None available. FINDINGS: SUPPORT DEVICES: None. HEART / MEDIASTINUM: No significant abnormality. LUNGS / PLEURA: No significant pulmonary or pleural abnormality. No pneumothorax. ADDITIONAL FINDINGS: No significant additional findings. IMPRESSION: 1. No acute findings. Signer Name: Matias Ocampo MD Signed: 04/24/2019 11:49 AM Workstation Name: [id number]
== END 2019-04-24 10:50 | disposition home or self-care (01) ==
LOC: XRAY 10:49
PROVIDERS: ATTEND Internal Medicine
DX: M54.5 Low back pain (principal); R05 Cough
CPT/HCPCS: 71046; 72110

== ENCOUNTER 2021-02-19 12:55 | Emergency (ER) | payer MEDICAID ==
[2021-02-19 14:19] VITALS: BP 147/89
[2021-02-19 14:50] LABS: Bacteria,Urine 4+ /HPF (Negative); Bilirubin,Urine NEG (Negative); Blood,Urine MOD (Negative); Color,Urine Yellow (Yellow); Mucus,Urine 1+ /HPF; Protein,Urine <15 mg/dL mg/dL (Negative)
[2021-02-19 14:52] LABS: HCG Qualitative,Urine Positive (Negative)
[2021-02-19 15:26] LABS: Alanine Aminotransferase 12 units/L (7-56); Blood Urea Nitrogen 7 mg/dL (7-17); Calcium 9.7 mg/dL (8.4-10.2); Hemolysis Index 8
[2021-02-19 15:28] LABS: BUN/Creatinine Ratio 14
[2021-02-19 16:09] LABS: Basophils % (Auto) 0.3 % (0.0-1.8); Eosinophils # (Auto) 0.1 K/mm3 (0.0-0.4); Eosinophils % (Auto) 1.3 % (0.0-4.3); Hematocrit 37.7 % (30.3-42.9); Hemoglobin 13.1 gm/dl (10.1-14.3); Lymphocytes # (Auto) 2.2 K/mm3 (1.2-5.4); Lymphocytes % (Auto) 26.9 % (13.4-35.0); Mean Corpuscular HGB Conc 35 % (30-34); Mean Corpuscular Volume 94 fl (79-97); Monocytes # (Auto) 0.6 K/mm3 (0.0-0.8); Monocytes % (Auto) 7.5 % (0.0-7.3); Platelet Count 220 K/mm3 (140-440); Red Blood Count 4.02 M/mm3 (3.65-5.03); Red Cell Distribution Width 13.4 % (13.2-15.2)
--- NOTE | 2021-02-19 16:46 | Emergency Department Report ---
ED Female HPI - General Chief complaint: Vaginal Bleeding Stated complaint: VAGINAL BLEEDING Time Seen by Provider: 02/19/21 16:19 Source: patient Mode of arrival: Ambulatory Limitations: No Limitations - History of Present Illness Initial comments: Patient is a 40-year-old female presents emergency room with complaints of vaginal spotting that began earlier today. She states that she notices the spotting whenever she wipes. She denies any heavy bleeding or passing clots. She has a lower abdominal cramping which she states feels like a pressure. She states that she has intermittent nausea and vomiting which she relates to morning sickness. She denies any fever, diarrhea, vaginal itching or discharge, vaginal burning, dysuria, any urinary symptoms. She states her last menstrual cycle was the end of October. She states that she has not yet seen her FOUNTAIN OPERATOR, she states that she has an appointment with [facility] in a week. Past medical h istory of asthma. /P: 4/A: 4 - Related Data Previous Rx's Medication Instructions Recorded Last Taken Type Ibuprofen [Motrin] 600 mg PO Q8H PRN #30 tablet 03/16/20 Unknown Rx Acetaminophen [Tylenol] 650 mg PO Q8HR PRN #20 capsule 02/19/21 Unknown Rx cephALEXin [Keflex] 500 mg PO BID 7 Days #14 cap 02/19/21 Unknown Rx Allergies Allergy/AdvReac Type Severity Reaction Status Date / Time morphine AdvReac Unknown Verified 02/18/17 01:11 ED Review of Systems ROS: Stated complaint: VAGINAL BLEEDING Other details as noted in HPI Comment: All other systems reviewed and negative ED Past Medical Hx - Past Medical History Previous Medical History?: Yes Hx Hypertension: No Hx Congestive Heart Failure: No Hx Diabetes: No Hx Deep Vein Thrombosis: No Hx Renal Disease: No Hx Sickle Cell Disease: No Hx Seizures: No Hx Asthma: Yes (Child sanchez asthma) Hx COPD: No Hx HIV: No Additional medical history: Vaginal dleivery with epidural 02-16-2017 - Surgical History Past Surgical History?: No - Social History Smoking Status: Never Smoker - Medications Home Medications: Home Medications Medication Instructions Recorded Confirmed Last Taken Type Ibuprofen [Motrin] 600 mg PO Q8H PRN #30 tablet 03/16/20 Unknown Rx Acetaminophen [Tylenol] 650 mg PO Q8HR PRN #20 capsule 02/19/21 Unknown Rx cephALEXin [Keflex] 500 mg PO BID 7 Days #14 cap 02/19/21 Unknown Rx ED Physical Exam - General Limitations: No Limitations General appearance: alert, in no apparent distress - Head Head exam: Present: atraumatic, normocephalic - Eye Eye exam: Present: normal appearance - ENT ENT exam: Present: mucous membranes moist - Respiratory Respiratory exam: Present: normal lung sounds bilaterally. Absent: respiratory distress, wheezes, rales, rhonchi, stridor, chest wall tenderness, accessory muscle use, decreased breath sounds, prolonged expiratory - Cardiovascular Cardiovascular Exam: Present: regular rate, normal rhythm, normal heart sounds. Absent: systolic murmur, diastolic murmur, rubs, gallop - GI/Abdominal GI/Abdominal exam: Present: soft, tenderness (mild suprapubic ), normal bowel sounds. Absent: distended, guarding, rebound, rigid - Neurological Exam Neurological exam: Present: alert, oriented X3 - Psychiatric Psychiatric exam: Present: normal affect, normal mood - Skin Skin exam: Present: warm, dry, intact ED Course Vital Signs 02/19/21 14:17 Temperature 98.7 F Pulse Rate 99 H Respiratory 18 Rate Blood Pressure 147/89 [Right] O2 Sat by Pulse 100 Oximetry ED Medical Decision Making - Lab Data Result diagrams: 02/19/21 14:47 02/19/21 14:47 Lab Results 02/19/21 02/19/21 02/19/21 Range/Units 14:47 14:47 14:47 WBC 8.1 (4.5-11.0) K/mm3 RBC 4.02 (3.65-5.03) M/mm3 Hgb 13.1 (10.1-14.3) gm/dl Hct 37.7 (30.3-42.9) % MCV 94 (79-97) fl MCH 33 H (28-32) pg MCHC 35 H (30-34) % RDW 13.4 (13.2-15.2) % Plt Count 220 (140-440) K/mm3 Lymph % (Auto) 26.9 (13.4-35.0) % [place] % (Auto) 7.5 H (0.0-7.3) % Eos % (Auto) 1.3 (0.0-4.3) % Baso % (Auto) 0.3 (0.0-1.8) % Lymph # (Auto) 2.2 (1.2-5.4) K/mm3 [place] # (Auto) 0.6 (0.0-0.8) K/mm3 Eos # (Auto) 0.1 (0.0-0.4) K/mm3 Baso # (Auto) 0.0 (0.0-0.1) K/mm3 Seg Neutrophils % 64.0 (40.0-70.0) % Seg Neutrophils # 5.2 (1.8-7.7) K/mm3 Sodium 138 (137-145) mmol/L Potassium 4.3 (3.6-5.0) mmol/L Chloride 102.3 (98-107) mmol/L Carbon Dioxide 26 (22-30) mmol/L Anion Gap 14 mmol/L BUN 7 (7-17) mg/dL Creatinine 0.5 L (0.6-1.2) mg/dL Estimated GFR > 60 ml/min BUN/Creatinine Ratio 14 % Glucose 100 (65-100) mg/dL Calcium 9.7 (8.4-10.2) mg/dL Total Bilirubin 0.30 (0.1-1.2) mg/dL AST 16 (5-40) units/L ALT 12 (7-56) units/L Alkaline Phosphatase 45 (35-129) units/L Total Protein 7.0 (6.3-8.2) g/dL Albumin 4.0 (3.9-5) g/dL Albumin/Globulin Ratio 1.3 % HCG, Quant 60539 H (0-4) mIU/mL Urine Color (Yellow) Urine Turbidity (Clear) Urine pH (5.0-7.0) Ur Specific [place] (1.003-1.030) Urine Protein (Negative) mg/dL Urine Glucose (UA) (Negative) mg/dL Urine Ketones (Negative) mg/dL Urine Blood (Negative) Urine Nitrite (Negative) Urine Bilirubin (Negative) Urine Urobilinogen (<2.0) mg/dL Ur Leukocyte Esterase (Negative) Urine WBC (Auto) (0.0-6.0) /HPF Urine RBC (Auto) (0.0-6.0) /HPF U Epithel Cells (Auto) (0-13.0) /HPF Urine Bacteria (Auto) (Negative) /HPF Urine Mucus /HPF Urine HCG, Qual (Negative) Blood Type 02/19/21 02/19/21 Range/Units 14:47 Unknown WBC (4.5-11.0) K/mm3 RBC (3.65-5.03) M/mm3 Hgb (10.1-14.3) gm/dl Hct (30.3-42.9) % MCV (79-97) fl MCH (28-32) pg MCHC (30-34) % RDW (13.2-15.2) % Plt Count (140-440) K/mm3 Lymph % (Auto) (13.4-35.0) % [place] % (Auto) (0.0-7.3) % Eos % (Auto) (0.0-4.3) % Baso % (Auto) (0.0-1.8) % Lymph # (Auto) (1.2-5.4) K/mm3 [place] # (Auto) (0.0-0.8) K/mm3 Eos # (Auto) (0.0-0.4) K/mm3 Baso # (Auto) (0.0-0.1) K/mm3 Seg Neutrophils % (40.0-70.0) % Seg Neutrophils # (1.8-7.7) K/mm3 Sodium (137-145) mmol/L Potassium (3.6-5.0) mmol/L Chloride (98-107) mmol/L Carbon Dioxide (22-30) mmol/L Anion Gap mmol/L BUN (7-17) mg/dL Creatinine (0.6-1.2) mg/dL Estimated GFR ml/min BUN/Creatinine Ratio % Glucose (65-100) mg/dL Calcium (8.4-10.2) mg/dL Total Bilirubin (0.1-1.2) mg/dL AST (5-40) units/L ALT (7-56) units/L Alkaline Phosphatase (35-129) units/L Total Protein (6.3-8.2) g/dL Albumin (3.9-5) g/dL Albumin/Globulin Ratio % HCG, Quant (0-4) mIU/mL Urine Color Yellow (Yellow) Urine Turbidity Slightly-cloudy (Clear) Urine pH 6.0 (5.0-7.0) Ur Specific [place] 1.025 (1.003-1.030) Urine Protein <15 mg/dl (Negative) mg/dL Urine Glucose (UA) Neg (Negative) mg/dL Urine Ketones Neg (Negative) mg/dL Urine Blood Mod (Negative) Urine Nitrite Pos (Negative) Urine Bilirubin Neg (Negative) Urine Urobilinogen 2.0 (<2.0) mg/dL Ur Leukocyte Esterase Neg (Negative) Urine WBC (Auto) 3.0 (0.0-6.0) /HPF Urine RBC (Auto) 8.0 (0.0-6.0) /HPF U Epithel Cells (Auto) 14.0 H (0-13.0) /HPF Urine Bacteria (Auto) 4+ (Negative) /HPF Urine Mucus 1+ /HPF Urine HCG, Qual Positive A (Negative) Blood Type A POSITIVE - Radiology Data Radiology results: report reviewed Ordering Physician: CRISTIN CHESTER Date of Service: 02/19/21 Procedure(s): US OB transvaginal Accession Number(s): [id number] cc: CRISTIN CHESTER ULTRASOUND OBSTETRIC Indication: , bleeding Findings: There is a single, living intrauterine . [place]-rump length = 4.4 cm = 11 weeks, 2 day(s). heart rate is 165 beats per minute. The ovaries are normal. There is no free fluid. Impression: Single, living intrauterine with estimated sonographic age of 11 weeks, 2 day(s). Signer Name: Chance Nixon MD Signed: 02/19/2021 6:50 PM Workstation Name: [id number] Transcribed By: Dictated By: Chance Nixon MD Electronically Authenticated By: Chance Nixon MD Signed Date/Time: 02/19/211849 DD/ 43 TD/TT: - Medical Decision Making Patient is a 40-year-old female presents emergency room with complaints of vaginal spotting that began earlier today. She states that she notices the spotting whenever she wipes. She denies any heavy bleeding or passing clots. She has a lower abdominal cramping which she states feels like a pressure. She states that she has intermittent nausea and vomiting which she relates to morning sickness. She denies any fever, diarrhea, vaginal itching or discharge, vaginal burning, dysuria, any urinary symptoms. She states her last menstrual cycle was the end of October. She states that she has not yet seen her FOUNTAIN OPERATOR, she states that she has an appointment with [facility] in a week. Past medical history of asthma. /P: 4/A: 4. Vitals are stable. On exam patient has mild suprapubic tenderness palpation, no guarding, no rebound, no rigidity, no masses, no peritoneal signs. Labs are stable. Patient is Rh+. UA shows 4+ bacteria, could be due to contamination due to many epithelial cells, given that patient is , will cover for UTI. OB ultrasound: Single, living intrauterine with estimated sonographic age of 11 weeks, 2 day(s). Discussed all results with patient answer questions. Patient given prescription for medication. Discussed the importance of close FOUNTAIN OPERATOR follow-up. Advised patient Please take medication as prescribed. Increase your water intake. Please practice pelvic rest, no sexual intercourse, no douching, no tampons. Follow-up with your FOUNTAIN OPERATOR. Return to emergency room for any new or worsening symptoms. Critical care attestation.: If time is entered above; I have spent that time in minutes in the direct care of this critically ill patient, excluding procedure time. ED Disposition Clinical Impression: Vaginal spotting Qualifiers: Weeks of gestation: 11 weeks Qualified Code(s): Z3A.11 - 11 weeks gestation of UTI (urinary tract infection) Qualifiers: Urinary tract infection type: acute cystitis Hematuria presence: without hematuria Qualified Code(s): N30.00 - Acute cystitis without hematuria Disposition: - TO HOME OR SELFCARE Is pt being admited?: No Does the pt Need Aspirin: No Condition: Stable Instructions: Urinary Tract Infection, Adult, Vaginal Bleeding During Pre gnancy, Second Trimester, [id number] Additional Instructions: Please take medication as prescribed. Increase your water intake. Please practice pelvic rest, no sexual intercourse, no douching, no tampons. Follow-up with your FOUNTAIN OPERATOR. Return to emergency room for any new or worsening symptoms. Prescriptions: cephALEXin [Keflex] 500 mg PO BID 7 Days #14 cap Acetaminophen [Tylenol] 650 mg PO Q8HR PRN #20 capsule PRN Reason: pain Referrals: [facility] [Provider Group] - 2-3 Days Time of Disposition: 19:07 Print Language: NICARAGUAN
--- NOTE | 2021-02-19 18:54 | Ultrasound Report ---
ULTRASOUND OBSTETRIC Indication: , bleeding Findings: There is a single, living intrauterine . [place]-rump length = 4.4 cm = 11 weeks, 2 day(s). heart rate is 165 beats per minute. The ovaries are normal. There is no free fluid. Impression: Single, living intrauterine with estimated sonographic age of 11 weeks, 2 day(s). Signer Name: Chance Nixon MD Signed: 02/19/2021 6:50 PM Workstation Name: [email or web address]
== END 2021-02-19 19:12 | disposition home or self-care (01) ==
LOC: ED 12:55
DX: O46.8X1 Other antepartum hemorrhage, first trimester (principal); Z3A.11 11 weeks gestation of pregnancy; O99.511 Diseases of the respiratory system complicating pregnancy, first trimester; O23.41 Unspecified infection of urinary tract in pregnancy, first trimester; Z88.5 Allergy status to narcotic agent
CPT/HCPCS: 36415; 76801; 76805; 76817; 80053; 81001; 81025; 84702; 85025; 86900; 86901; 99284

== ENCOUNTER 2021-03-24 16:06 | Emergency (ER) | payer MEDICAID | END 2021-03-24 18:01 | disposition left against medical advice (07) | LOC: ED 16:06 | DX: M54.9 Dorsalgia, unspecified (principal); Z53.21 Procedure and treatment not carried out due to patient leaving prior to being seen by health care provider ==

== ENCOUNTER 2021-05-28 12:16 | Outpatient (CLI) | payer MEDICAID ==
[2021-05-28] MEDS ORDERED: LACTATED RINGERS 1,000 ML IV ONE (13:32)
[2021-05-28 13:52] VITALS: BP 121/73
[2021-05-28] MEDS ORDERED: BETAMET ACET/BETAMET NA PH 6 MG/ML INJ 5 ML MDV IM SCH (14:13)
[2021-05-28 14:15] LABS: Bacteria,Urine 2+ /HPF (Negative); Bilirubin,Urine NEG (Negative); Blood,Urine LG (Negative); Color,Urine Red (Yellow); Mucus,Urine 2+ /HPF; Urobilinogen,Urine < 2.0 mg/dL (<2.0)
[2021-05-28 14:17] LABS: RBC,Urine > 182.0 /HPF (0.0-6.0)
--- NOTE | 2021-05-28 15:03 | Ultrasound Report ---
ULTRASOUND OBSTETRIC LIMITED INDICATION / CLINICAL INFORMATION: vaginal bleeding. Clinical Gestational Age (GA) in weeks, days: 25 weeks 3 days TECHNIQUE: Transabdominal. COMPARISON: 02/19/2021 FINDINGS: Single live intrauterine . measurements correspond to a gestational age of 2 4 weeks 3 days. HEART RATE (beats per minute): 168 AMNIOTIC FLUID INDEX (cm) = 9.1 (normal = 7-24 cm) PRESENTATION: Transverse, head maternal left ADDITIONAL FINDINGS: Fundal placenta is free of the os. No evidence of placental abruption. IMPRESSION: 1. Single live IUP with ultrasound age of 24 weeks 3 days. 2. No significant abnormality. Signer Name: Tl Mendosa MD Signed: 05/28/2021 2:58 PM Workstation Name: [id number]
== END 2021-05-28 15:07 | disposition home or self-care (01) ==
LOC: TRG 12:16 → APU 12:18 → TRG 15:07
PROVIDERS: ATTEND Obstetrics & Gynecology
DX: O09.892 Supervision of other high risk pregnancies, second trimester (principal); Z3A.25 25 weeks gestation of pregnancy
CPT/HCPCS: 59025; 76816; 81001